=== PATIENT | male | born 1945 | race Hispanic/Latino ===

== ENCOUNTER 2018-08-30 08:58 | Emergency (ER) | payer MEDICARE ==
[~2018-08-30] VITALS: Ht 162.6 cm; Wt 64.2 kg
--- OUTSIDE RECORDS SUMMARY | 2018-08-30 09:00 | XMS REPORT | Clinical Summary ---
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 Active lisinopril Take 2.5 mg 0 (PRINIVIL,ZESTRIL) 2.5 mg by mouth tablet daily. Active nitrofurantoin Take 100 mg 0 (MACRODANTIN) 100 MG by mouth capsule daily. X 10 days Active tamsulosin (FLOMAX) 0.4 Take 0.4 mg 0 mg capsule,extended by mouth release 24hr daily. Active finasteride (PROSCAR) 5 Take 5 mg by 0 mg tablet mouth daily. Active atorvastatin (LIPITOR) 80 Take 80 mg by 0 MG tablet mouth daily. Active aspirin (ECOTRIN) 81 MG Take 81 mg by 0 enteric coated tablet mouth daily. Active clopidogrel (PLAVIX) 75 Take 75 mg by 0 mg tablet mouth daily. Active Problems Problem Noted Date BPH (benign prostatic hyperplasia) 01/27/2017 BPH (benign prostatic hypertrophy) with urinary retention 01/26/2017 Social History Date Tobacco Use Types Packs/Day Years Used Never Smoker Alcohol Use Drinks/Week oz/Week Comments No Sex Assigned at Date Recorded Not on file Industry Job Start Date Occupation Not on file Not on file Not on file Travel End Travel History Travel Start No recent travel history available. Last Filed Vital Signs Not on file Plan of Treatment Health Maintenance Due Date Last Done Comments COLON CANCER SCREENING 1994 SHINGLES VACCINES ( of 1994 2) PNEUMOCOCCAL 2009 POLYSACCHARIDE VACCINE AGE 65 AND OVER PNEUMOCOCCAL-13 2009 INFLUENZA VACCINE 04/05/2018 Results Not on fileafter 08/29/2017 Insurance Payer Benefit Subscriber ID Type Phone Address Plan / Group [facility] MEDICARE UNITED/CAR xxxxxxxxx HMO E RUSSELL T SUNDAR Advance Directives Patient has advance care planning documents, and code status on file. For more i nformation, please contact: Kj Guidry [address] [place] [address] Date Inactivated Comments Code Status Date Activated 01/28/2017 7:47 PM Full Code 01/27/2017 4:21 PM Code Status decision reached by: Patient
--- NOTE | 2018-08-30 09:54 | Diagnostic Imaging Report ---
EXAM: CXR 2 VIEW - [facility], PA and lateral DATE: 08/30/2018 Time stamp on exam: 9:25 AM INDICATION: Cough COMPARISON: None FINDINGS: LINES/TUBES: None LUNGS: Evidence of volume loss with stranding in the right upper lobe. Nodular opacities also present in the right suprahilar region and right upper lobe. CT scan with IV contrast is recommended for further evaluation. PLEURA: No effusions or pneumothorax. HEART AND MEDIASTINUM: Normal size and contour. Tenting and elevation of the right hemidiaphragm. BONES AND SOFT TISSUES: No acute findings. Mild degenerative changes of the spine. IMPRESSION: 1. Opacity and evidence of right upper lobe volume loss may be related to chronic disease. 2. Suspicion of several right upper lobe nodules-CT scan of the chest with IV contrast recommended. Signed by: Dr. Delbert Culp DO on 08/30/2018 9:51 AM
--- NOTE | 2018-08-30 10:53 | NUR ---
Pt returned from CT. Pt sitting up on stretcher. Denies any pain or discomfort at the present time. Pt placed back on NIBP and pulse ox. Will continue to monitor.
[2018-08-30] MEDS ORDERED: VITAMIN C1000 MG PO (11:05)
[2018-08-30] MEDS ORDERED: LEVOTHYROXINE75 MCG PO (11:05)
[2018-08-30] MEDS ORDERED: FINASTERIDE5 MG PO (11:05)
[2018-08-30] MEDS ORDERED: ATORVASTATIN CA20 MG PO (11:05)
[2018-08-30] MEDS ORDERED: CLOPIDOGREL75 MG PO (11:05)
[2018-08-30] MEDS ORDERED: TAMSULOSIN HCL0.4 MG PO (11:05)
[2018-08-30] MEDS ORDERED: LISINOPRIL5 MG PO (11:05)
[2018-08-30] MEDS ORDERED: IOPAMIDOL 370 MG/ML 50ML INFUS..BTL INJ ONE (11:15)
--- NOTE | 2018-08-30 12:46 | NUR ---
Pt updated once again that we are just waiting for the radiology read on the CT. Pt verbalized understanding.
--- NOTE | 2018-08-30 12:50 | Diagnostic Imaging Report ---
EXAMINATION: CT scan of the chest with and without contrast. TECHNIQUE: Spiral CT images of the chest were performed from the lung apices to the level of the adrenal glands before and after the intravenous administration of 100 cc of Isovue 370. Coronal and sagittal reformatted images were obtained. COMPARISON: Chest 2 views 08/30/2018 CLINICAL HISTORY:Abnormal chest x-ray, cough, nodules DISCUSSION: LINES/TUBES: None. LUNGS AND AIRWAYS: * 1.4 x 1.4 cm nodule in the right upper lobe at the minor fissure, with central calcification (series 3, image 45). * Linear opacities in the right upper lobe, with focal area of linear consolidation with air bronchograms in the posterior aspect, against the superior portion of the major fissure (series 3, image 35 and sagittal postcontrast image 37), which is also partly calcified (for example series 2, image 31-33). There is associated anterior retraction of the right major fissure. * A partly calcified nodule in the anterior right upper lobe (series 3, image 30) has associated linear opacities, likely reflect confluent scarring. * Calcified linear opacity in the posterior left lower lobe (series 3, image 87). No other nodules, no masses or consolidation. Airways are clear, without endobronchial lesions. PLEURA: No pneumothorax or pleural effusions. HEART AND MEDIASTINUM: Thyroid is unremarkable. Mild cardiomegaly. Prominent right atrium. Atherosclerotic calcification of the coronary arteries, particularly the LAD. Aorta is nonaneurysmal. Main pulmonary artery is normal in caliber, measuring 2.9 cm. LYMPH NODES: There is no mediastinal, hilar or axillary lymphadenopathy. ABDOMEN: Limited views of the contrast-enhanced upper abdomen show no abnormality within the visualized spleen, pancreas, or kidneys. 0.5 cm hypodense lesion in the caudate lobe (series 5, image 108), which is too small to characterize but likely represents a small cyst. The adrenal glands are unremarkable. BONES AND SOFT TISSUES: No aggressive lytic lesions. Degenerative disc changes in the lower thoracic spine. Soft tissues are grossly unremarkable. IMPRESSION: 1. Prominent scarring in the right upper lobe, particularly against the superior portion of the major fissure, which is partly calcified. A centrally calcified 1.4 similar nodule is noted in the right upper lobe at the major fissure. Findings likely represent sequela of prior granulomatous disease. Signed by: Dr. Gomez Lepe M.D. on 08/30/2018 12:46 PM
[2018-08-30] MEDS ORDERED: DEXAMETHASONE SOD PHOS 10 MG/1 ML VIAL IV ONE (13:15)
== END 2018-08-30 13:32 | disposition home or self-care (01) ==
LOC: FSED 08:58
DX: J06.0 Acute laryngopharyngitis (principal); I10 Essential (primary) hypertension; I25.10 Atherosclerotic heart disease of native coronary artery without angina pectoris; E78.5 Hyperlipidemia, unspecified; Z87.891 Personal history of nicotine dependence
CPT/HCPCS: 71046; 71250; 71260; 80048; 83518; 85025; 87400; 93005; 99284; J1100; Q9967

== ENCOUNTER 2019-07-20 13:27 | Emergency (ER) | payer MEDICARE ==
[~2019-07-20] VITALS: Ht 160 cm; Wt 65.9 kg
[~2019-07-20 13:27] MED LIST: ATORVASTATIN CA20 MG PO; CLOPIDOGREL75 MG PO; FINASTERIDE5 MG PO; LEVOTHYROXINE75 MCG PO; LISINOPRIL5 MG PO; TAMSULOSIN HCL0.4 MG PO; VITAMIN C1000 MG PO
--- OUTSIDE RECORDS SUMMARY | 2019-07-20 13:29 | XMS REPORT ---
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 Allergies, Adverse Reactions, Alerts This patient has no known allergies or adverse reactions. Medications This patient has no known medications. Results Test Description Test Time Test Comments Text Results Atomic Results Result Comments CT CHEST WITH CONTRAST-[facility] 2018-08-30 12:30:00 [place] [id number] Patient Name: REJI ASKEW MR #: [id number] : 1945 Age/Sex: 72/M Req #: [id number] [facility] Physician: Ordered by: ASHLEE MYRICK MD Report #: [id number] Location: [facility] Room/Bed: Procedure: [id number] [facility] Ex[facility] Date: 08/30/18 Exam Time: 1050 REPORT STATUS: Signed EXAMINATION: CT scan of the chest with and without contrast. TECHNIQUE: Spiral CT images of the chest were performed from the lung apices to the level of the adrenal glands before and after the intravenous administration of 100 cc of Isovue 370. Coronal and sagittal reformatted images were obtained. COMPARISON: Chest 2 views 08/30/2018 CLINICAL HISTORY:Abnormal chest x-ray, cough, nodules DISCUSSION: LINES/TUBES: None. LUNGS AND AIRWAYS: * 1.4 x 1.4 cm nodule in the right upper lobe at the minor fissure, with central calcification (series 3, image 45). * Linear opacities in the right upper lobe, with focal area of linear consolidation with air bronchograms in the posterior aspect, against the superior portion of the major fissure (series 3, image 35 and sagittal postcontrast image 37), which is also partly calcified (for example series 2, image 31-33). There is associated anterior retraction of the right major fissure. * A partly calcified nodule in the anterior right upper lobe (series 3, image 30) has associated linear opacities, likely reflect confluent scarring. * Calcified linear opacity in the posterior left lower lobe (series 3, image 87). No other nodules, no masses or consolidation. Airways are clear, without endobronchial lesions. PLEURA: No pneumothorax or pleural effusions. HEART AND MEDIASTINUM: Thyroid is unremarkable. Mild cardiomegaly. Prominent right atrium. Atherosclerotic calcification of the coronary arteries, particularly the LAD. Aorta is nonaneurysmal. Main pulmonary artery is normal in caliber, measuring 2.9 cm. LYMPH NODES: There is no mediastinal, hilar or axillary lymphadenopathy. ABDOMEN: Limited views of the contrast-enhanced upper abdomen show no abnormality within the visualized spleen, pancreas, or kidneys. 0.5 cm hypodense lesion in the caudate lobe (series 5, image 108), which is too small to characterize but likely represents a small cyst. The adrenal glands are unremarkable. BONES AND SOFT TISSUES: No aggressive lytic lesions. Degenerative disc changes in the lower thoracic spine. Soft tissues are grossly unremarkable. IMPRESSION: 1. Prominent scarring in the right upper lobe, particularly against the superior portion of the major fissure, which is partly calcified. A centrally calcified 1.4 similar nodule is noted in the right upper lobe at the major fissure. Findings likely represent sequela of prior granulomatous disease. Signed by: Dr. Valentina Lepe M.D. on 08/30/2018 12:46 PM Dictated By: VALENTINA LEPE MD [id number] Transcribed By: DUKE on 08/30/18 1246 COPY TO: ASHLEE MYRICK MD CXR 2 VIEW - [facility] 2018-08-30 09:47:00 [place] [id number] [place] [address] Patient Name: REJI ASKEW MR #: [id number] : 1945 Age/Sex: 72/M Req #: [id number] Adm Physician: Ordered by: ASHLEE MYRICK MD Report #: [id number] Location: [facility] Room/Bed: Procedure: [id number] [facility]/CXR 2 VIEW - [facility] Exam Date: 08/30/18 Exam Time: 919 REPORT STATUS: Signed EXAM: CXR 2 VIEW - [facility], PA and lateral DATE: 08/06 Time stamp on exam: 9:25 AM INDICATION: Cough COMPARISON: None FINDINGS: LINES/TUBES: None LUNGS: Evidence of volume loss with stranding in the right upper lobe. Nodular opacities also present in the right suprahilar region and right upper lobe. CT scan with IV contrast is recommended for further evaluation. PLEURA: No effusions or pneumothorax. HEART AND MEDIASTINUM: Normal size and contour. Tenting and elevation of the right hemidiaphragm. BONES AND SOFT TISSUES: No acute findings. Mild degenerative changes of the spine. IMPRESSION: 1. Opacity and evidence of right upper lobe volume loss may be related to chronic disease. 2. Suspicion of several right upper lobe nodules-CT scan of the chest with IV contrast recommended. Signed by: Dr. Acacia Culp DO on 08/30/2018 9:51 AM Dictated By: ACACIA CULP DO 0 Transcribed By: DUKE on 08/30/18950 COPY TO: ASHLEE MYRICK MD
[2019-07-20] MEDS ORDERED: VITAMIN D1000 UNI1 PO (13:58)
--- NOTE | 2019-07-20 15:06 | Diagnostic Imaging Report ---
EXAMINATION: CXR 2 VIEW - [facility] INDICATION: Fever COMPARISON: Chest radiograph of 08/30/2018 FINDINGS: LINES/TUBES:None LUNGS:The lungs are well-inflated. Again seen is atelectasis and scarring at the right upper lobe and a more focal right upper lobe nodular opacity corresponding with the known nodule at the right major fissure seen on prior CT. No new focal consolidation or pulmonary edema. PLEURA:No pleural effusion or pneumothorax. MEDIASTINUM:The cardiomediastinal silhouette appears normal in size and shape. Atherosclerotic calcifications of the thoracic aorta. BONES/SOFT TISSUES:No acute osseous injury. ABDOMEN:No free air under the diaphragm. IMPRESSION: No significant interval change. Specifically, no focal pneumonia or pulmonary edema. Unchanged right upper lobe scarring and nodule corresponding with fissural nodule seen on prior CT. Signed by: Jenni Cole MD on 07/20/2019 3:03 PM
[2019-07-20 15:20] VITALS: BP 110/61
== END 2019-07-20 15:23 | disposition home or self-care (01) ==
LOC: FSED 13:27
DX: R50.9 Fever, unspecified (principal); J20.9 Acute bronchitis, unspecified; J04.0 Acute laryngitis; I10 Essential (primary) hypertension; E78.5 Hyperlipidemia, unspecified; I25.10 Atherosclerotic heart disease of native coronary artery without angina pectoris; E03.9 Hypothyroidism, unspecified
CPT/HCPCS: 71046; 81003; 83518; 87400; 99283